=== PATIENT | female | born 1950 | race Caucasian/White ===

== ENCOUNTER → 2017-12-15 12:31 | Outpatient (CLI) | payer MEDICARE ==
--- NOTE | ~2017-12-15 | EC ---
PATIENT:LORI REMY DATE OF SERVICE: 12/15/17 SEX: F MEDICAL RECORD: [id number] DATE OF : [birth year] LOCATION:[facility] AGE OF PATIENT: 67 ADMISSION DATE: 12/15/17 REFERRING PHYSICIAN: INTERPRETING PHYSICIAN: DAMIÁN HURTADO MD ECHOCARDIOGRAM REPORT ECHO CHARGES 4 ECHO COMPLETE Date: 12/15/17 CLINICAL DIAGNOSIS: PALPITATIONS ECHOCARDIOGRAPHIC MEASUREMENTS (adult normal given) AC root (d.<3.7cm) 3.8 cm LV Septum d (<1.2 cm> 1.2 cm Valve Excursion 2.1 cm LV Septum (systole) 1.6 cm Left Atria (s.<4.0cm> 2.9 cm LVPW d(<1.2cm) 1.5 cm RV (d.<2.3cm) 3.2 cm LVPW (sytole) 1.8 cm LV diastole(<5.6CM) 4.8 cm MV E-F(>70mm/sec) cm LV systole 3.0 cm LVOT Diameter 1.7 cm MV exc.(>10mm) 1.6 cm Est.ejection fraction (50-75%) % DOPPLER: LVIT cm/sec A 98.0 cm/sec E 77.0 cm/sec LA cm/sec RVSP 17 mmHg LVOT 104 cm/sec AOP1/2T m/s Asc. Ao 140 cm/sec RVOT 86 cm/sec RA cm/sec PA 106 cm/sec AV Gradient Peak 7.89 mmHg AV Mean 3.66 mmHg AV Area 1.8 cm MV Gradient Peak 4.02 mmHg MV Mean 1.56 mmHg MV Area cm COMMENTS: Peanut Sorter: Geetha CHONG Pe Manager: Juli Hurtado TAPE# PACS Pericardial Effusion N DATE OF SERVICE: PROCEDURE: Transthoracic echocardiogram. FINDINGS: 1. Left ventricle shows mild left ventricular hypertrophy. Inflow characteristics are consistent with diastolic dysfunction. Ejection fraction is 60% to 65%. 2. The left atrium is normal. 3. The aortic valve is normal. ECHOCARDIOGRAM REPORT [id number] LORI REMY 4. The mitral valve is normal. 5. The tricuspid valve is normal. 6. The pericardium is normal. 7. The right ventricle is normal. 8. The right atrium is normal. CONCLUSIONS: The patient has evidence of mild hypertensive heart disease, otherwise normal echocardiogram for stated age. TRANSINT:[id number] Voice Confirmation ID: [id number] DOCUMENT ID: [id number] DAMIÁN HURTADO MD at 1348 CC: [id number] DICTATION DATE: 12/16/17 1022 PALLIATIVE CARE NURSE PRACTITIONER: 12/16/17 1040 DEP CLI 12/15/17 [id number] [place] [address]
== END | disposition home or self-care (01) ==
LOC: D.ECHO 12:31
DX: R00.2 Palpitations (principal)

== ENCOUNTER 2018-04-13 08:00 | Outpatient (CLI) | payer MEDICARE, BC, OTHER | END 2018-04-13 09:00 | disposition home or self-care (01) | LOC: D.MAMMO 08:00 | DX: Z12.31 Encounter for screening mammogram for malignant neoplasm of breast (principal) ==

== ENCOUNTER → 2018-05-17 08:00 | Outpatient (CLI) | payer MEDICARE, BC, OTHER | END | disposition home or self-care (01) | LOC: D.MAMMO 08:00 | PROVIDERS: ATTEND Clinical Nurse Specialist Adult Health | DX: R92.8 Other abnormal and inconclusive findings on diagnostic imaging of breast (principal) ==

== ENCOUNTER 2019-08-07 09:00 | Outpatient (CLI) | payer MEDICARE, BC, OTHER | END 2019-08-07 10:00 | disposition home or self-care (01) | LOC: D.MAMMO 09:00 | PROVIDERS: ATTEND Family Medicine | DX: Z12.31 Encounter for screening mammogram for malignant neoplasm of breast (principal) ==